=== PATIENT | male | born 1965 | race Caucasian/White ===

== ENCOUNTER → 2017-10-28 16:32 | Outpatient (CLI) | payer SELFPAY ==
[2017-10-28 17:13] LABS: Absolute Lymphocyte Count 1.51 X10^3/ul (0.83-4.51); Absolute Neutrophil Count 2.2 X10^3/uL (2.0-7.7); Basophil# 0.04 X10^3/uL; Basophil% 0.9 % (0-1); Eosinophil# 0.21 X10^3/uL; Eosinophils% 4.9 % (0-5); Hematocrit 48.4 % (40-54); Hemoglobin 16.6 g/dl (13.0-16.5); Lymphocyte # 1.51 X10^3/ul (4.0); Mean Corp Hgb Conc 34.3 g/gl (32-36); Mean Corpuscular Hgb 32.1 pg (27.0-32.0); Mean Corpuscular Volume 93.6 fL (80-94); Mean Platelet Vol. 11.1 fl (6.2-12.0); Monocyte# 0.31 X10^3/uL; Monocyte% 7.2 % (0-10); Neutrophil # 2.24 X10^3/uL (2.7-7.7); Neutrophil % 51.8 % (47-70); Platelet Count 209 K/mm3 (150-450); RBC Distribution Width CV 12.8 % (11.6-14.6); RBC Distribution Width SD 43.1 fl (35.1-43.9); Red Blood Count 5.17 M/mm3 (4.6-6.2); White Blood Count 4.3 K/mm3 (4.4-11.0)
[2017-10-28 17:16] LABS: POSITIVE COUNT NO; POSITIVE DIFFERENTIAL NO; POSITIVE MORPHOLOGY NO
[2017-10-28 17:34] LABS: ALB/GLOB Ratio 1.2 RATIO (0.9-2.4); AST(SGOT) 19 U/L (15-37); Alanine Aminotransfer ALT/SGPT 22 U/L (16-61); Albumin, Serum 4.2 g/dL (3.2-5.0); Alkaline Phosphatase 46 U/L (45-117); Anion Gap 8 (5-15); BUN 11 mg/dL (7-18); BUN/Creat Ratio 10.2 RATIO (10-20); Chloride 104 mmol/L (98-107); Cholesterol 222 mg/dL (200); Creatinine, Serum 1.08 mg/dL (0.70-1.30); EST Glomerular Filtration Rate 76 mL/min (>60); Est Glom Filt Rate - Afr Amer 92 mL/min (>60); Globulin 3.6 g/dL (2.2-4.2); Glucose 88 mg/dL (74-106); High Density Lipoprotein 56 mg/dL; PSA,Total - Annual Screen 1.58 ng/mL (0.00-4.00); Potassium 4.4 mmol/L (3.5-5.1); Protein, Total 7.8 g/dL (6.4-8.2); Sodium Level 138 mmol/L (136-145); Triglycerides 92 mg/dL; Very Low Density Lipoprotein 18 mg/dL (5-40)
== END ==
PROVIDERS: Visit Provider Nurse Practitioner
DX: Z00.00 Encounter for general adult medical examination without abnormal findings (principal); R35.0 Frequency of micturition; R79.89 Other specified abnormal findings of blood chemistry
CPT/HCPCS: 80053; 80061; 84153; 84403; 85025; G0103

== ENCOUNTER → 2018-03-19 13:05 | Outpatient (CLI) | payer SELFPAY ==
[2018-03-07 19:17] VITALS: BMI 20.9
[2018-03-19 13:51] LABS: Absolute Lymphocyte Count 1.39 X10^3/ul (0.83-4.51); Absolute Neutrophil Count 6.3 X10^3/uL (2.0-7.7); Basophil# 0.02 X10^3/uL; Basophil% 0.2 % (0-1); Eosinophil# 0.06 X10^3/uL; Eosinophils% 0.7 % (0-5); Hematocrit 41.6 % (40-54); Hemoglobin 13.9 g/dl (13.0-16.5); Lymphocyte # 1.39 X10^3/ul (4.0); Lymphocyte % 16.4 % (19-41); Mean Corp Hgb Conc 33.4 g/gl (32-36); Mean Corpuscular Hgb 31.5 pg (27.0-32.0); Mean Corpuscular Volume 94.3 fL (80-94); Mean Platelet Vol. 10.1 fl (6.2-12.0); Monocyte# 0.61 X10^3/uL; Monocyte% 7.2 % (0-10); Neutrophil # 6.34 X10^3/uL (2.7-7.7); Neutrophil % 75.1 % (47-70); Platelet Count 195 K/mm3 (150-450); RBC Distribution Width SD 43.7 fl (35.1-43.9); Red Blood Count 4.41 M/mm3 (4.6-6.2); White Blood Count 8.5 K/mm3 (4.4-11.0)
[2018-03-19 14:11] LABS: POSITIVE COUNT NO; POSITIVE DIFFERENTIAL NO; POSITIVE MORPHOLOGY NO
[2018-03-19 14:17] LABS: PSA,Total - Annual Screen 1.87 ng/mL (0.00-4.00)
== END ==
PROVIDERS: Family Provider Nurse Practitioner; PCP Nurse Practitioner; Referring Provider Nurse Practitioner; Visit Provider Nurse Practitioner
DX: E29.1 Testicular hypofunction (principal)
CPT/HCPCS: 36415; 84153; 84403; 85025; G0103

== ENCOUNTER → 2018-06-11 13:42 | Outpatient (CLI) | payer SELFPAY ==
[2018-06-04 15:41] VITALS: BMI 20.9
[2018-06-11 14:33] LABS: Absolute Lymphocyte Count 1.63 X10^3/ul (0.83-4.51); Absolute Neutrophil Count 3.1 X10^3/uL (2.0-7.7); Basophil# 0.01 X10^3/uL; Basophil% 0.2 % (0-1); Eosinophil# 0.05 X10^3/uL; Hematocrit 45.2 % (40-54); Hemoglobin 15.3 g/dl (13.0-16.5); Lymphocyte # 1.63 X10^3/ul (4.0); Lymphocyte % 31.9 % (19-41); Mean Corp Hgb Conc 33.8 g/gl (32-36); Mean Corpuscular Hgb 31.8 pg (27.0-32.0); Mean Platelet Vol. 10.6 fl (6.2-12.0); Monocyte# 0.34 X10^3/uL; Monocyte% 6.7 % (0-10); Neutrophil # 3.08 X10^3/uL (2.7-7.7); Neutrophil % 60.2 % (47-70); Platelet Count 189 K/mm3 (150-450); RBC Distribution Width CV 12.6 % (11.6-14.6); RBC Distribution Width SD 43.2 fl (35.1-43.9); Red Blood Count 4.81 M/mm3 (4.6-6.2); White Blood Count 5.1 K/mm3 (4.4-11.0)
[2018-06-11 14:34] LABS: POSITIVE COUNT NO; POSITIVE DIFFERENTIAL NO; POSITIVE MORPHOLOGY NO
[2018-06-11 15:27] LABS: PSA,Total- Diagnostic 1.92 ng/mL (0.0-4.0)
[2018-06-13 11:24] LABS: Testosterone Free 17.5 pg/mL (7.2-24.0)
== END ==
PROVIDERS: Family Provider Nurse Practitioner; PCP Nurse Practitioner; Referring Provider Nurse Practitioner; Visit Provider Nurse Practitioner
DX: E29.1 Testicular hypofunction (principal)
CPT/HCPCS: 36415; 84153; 84402; 85025

== ENCOUNTER → 2018-09-10 09:59 | Outpatient (CLI) | payer SELFPAY ==
[2018-09-03 15:29] VITALS: BMI 20.9
[2018-09-10 10:57] LABS: Absolute Lymphocyte Count 1.55 X10^3/ul (0.83-4.51); Absolute Neutrophil Count 2.4 X10^3/uL (2.0-7.7); Basophil# 0.02 X10^3/uL; Basophil% 0.4 % (0-1); Eosinophil# 0.15 X10^3/uL; Eosinophils% 3.4 % (0-5); Hematocrit 44.7 % (40-54); Lymphocyte # 1.55 X10^3/ul (4.0); Lymphocyte % 34.8 % (19-41); Mean Corp Hgb Conc 33.6 g/gl (32-36); Mean Corpuscular Hgb 30.7 pg (27.0-32.0); Mean Corpuscular Volume 91.4 fL (80-94); Mean Platelet Vol. 10.6 fl (6.2-12.0); Monocyte% 6.7 % (0-10); Neutrophil # 2.42 X10^3/uL (2.7-7.7); Neutrophil % 54.5 % (47-70); Platelet Count 214 K/mm3 (150-450); RBC Distribution Width CV 13.4 % (11.6-14.6); RBC Distribution Width SD 44.4 fl (35.1-43.9); Red Blood Count 4.89 M/mm3 (4.6-6.2); White Blood Count 4.5 K/mm3 (4.4-11.0)
[2018-09-10 11:00] LABS: POSITIVE COUNT NO; POSITIVE DIFFERENTIAL NO; POSITIVE MORPHOLOGY NO
[2018-09-10 11:20] LABS: PSA,Total- Diagnostic 2.02 ng/mL (0.0-4.0)
[2018-09-12 13:06] LABS: Testosterone Free 22.2 pg/mL (7.2-24.0)
== END ==
PROVIDERS: Family Provider Nurse Practitioner; PCP Nurse Practitioner; Referring Provider Nurse Practitioner; Visit Provider Nurse Practitioner
DX: E29.1 Testicular hypofunction (principal)
CPT/HCPCS: 36415; 84153; 84402; 85025

== ENCOUNTER → 2019-09-23 | Outpatient (CLI) | payer OTHER, SELFPAY ==
[2019-09-23 15:38] VITALS: BMI 21.2
[2019-09-25 19:58] LABS: PSA, Free 0.49 ng/mL; PSA, Total Ultrasensitive 1.4 ng/mL (0.0-4.0)
== END | disposition home or self-care (01) ==
PROVIDERS: PCP Nurse Practitioner; Referring Provider Nurse Practitioner; Visit Provider Nurse Practitioner
DX: N40.0 Benign prostatic hyperplasia without lower urinary tract symptoms (principal); R30.0 Dysuria
CPT/HCPCS: 84153; 84154

== ENCOUNTER → 2021-12-17 | Outpatient (CLI) | payer OTHER, SELFPAY ==
[2021-12-17 21:10] LABS: Lyme Ab Screen Interpretation REF LAB
[2021-12-17 21:50] LABS: Absolute Lymphocyte Count 1.98 X10^3/uL (0.83-4.51); Absolute Neutrophil Count 5.5 X10^3/uL (2.0-7.7); Basophil# 0.04 X10^3/uL; Basophil% 0.5 % (0-1); Eosinophil# 0.14 X10^3/uL; Eosinophils% 1.7 % (0-5); Hematocrit 44.8 % (40-54); Hemoglobin 15.1 g/dL (13.0-16.5); Lymphocyte # 1.98 X10^3/ul (0.83-4.51); Lymphocyte % 23.8 % (19-41); Mean Corp Hgb Conc 33.7 g/dL (32-36); Mean Corpuscular Hgb 31.3 pg (27.0-32.0); Mean Corpuscular Volume 92.9 fL (80-94); Mean Platelet Vol. 10.5 fl (6.2-12.0); Monocyte# 0.59 X10^3/uL; Monocyte% 7.1 % (0-10); NRBC Flagged by Analyzer 0 % (0-5); Neutrophil # 5.53 X10^3/uL (2.7-7.7); Neutrophil % 66.4 % (47-70); Platelet Count 215 K/mm3 (150-450); RBC Distribution Width CV 12.3 % (11.6-14.6); RBC Distribution Width SD 42.2 fl (35.1-43.9); Red Blood Count 4.82 M/mm3 (4.6-6.2); White Blood Count 8.3 K/mm3 (4.4-11.0)
[2021-12-17 22:56] LABS: AST(SGOT) 15 U/L (15-37); Alanine Aminotransfer ALT/SGPT 21 U/L (16-61); Albumin, Serum 3.8 g/dL (3.2-5.0); Alkaline Phosphatase 42 U/L (45-117); Anion Gap 6 (5-15); BUN 16 mg/dL (7-18); BUN/Creat Ratio 17.6 RATIO (10-20); Calcium,Total 9.1 mg/dL (8.5-10.1); Chloride 108 mmol/L (98-107); Creatinine, Serum 0.91 mg/dL (0.70-1.30); EST Glomerular Filtration Rate 91 mL/min (>60); Est Glom Filt Rate - Afr Amer 111 mL/min (>60); Globulin 3.7 g/dL (2.2-4.2); Glucose 78 mg/dL (74-106); Potassium 3.6 mmol/L (3.5-5.1); Prealbumin 33.1 mg/dL (20.0-40.0); Protein, Total 7.5 g/dL (6.4-8.2); Rheumatoid Factor < 10.0 IU/mL (<15); Sodium Level 143 mmol/L (136-145); Thyroid Stim Hormone (TSH) 1.44 uIU/mL (0.358-3.74)
[2021-12-19 11:07] LABS: Lyme Scn Total Ab w/Rflx Negative (Negative)
[2021-12-20 15:07] LABS: Anti-Centromere B Ab <0.2 AI (0.0-0.9); Anti-Chromatin <0.2 AI (0.0-0.9); Anti-Jo <0.2 AI (0.0-0.9); Anti-Scleroderma-70 AB <0.2 AI (0.0-0.9); RNP Ab <0.2 AI (0.0-0.9); SJOGREN'S Anti-SS-A test < 0.2 AI (0.0-0.9); SJOGREN'S Anti-SS-B test < 0.2 AI (0.0-0.9); Smith Ab <0.2 AI (0.0-0.9)
[2021-12-20 15:57] LABS: Anti-dsDNA Ab <1 IU/mL (0-9)
== END | disposition home or self-care (01) ==
PROVIDERS: PCP Nurse Practitioner; Referring Provider Nurse Practitioner; Visit Provider Nurse Practitioner
DX: R63.4 Abnormal weight loss (principal); M54.50 Low back pain, unspecified; G89.29 Other chronic pain
CPT/HCPCS: 80053; 84134; 84443; 85025; 86225; 86235; 86431; 86618

== ENCOUNTER → 2021-12-20 | Outpatient (CLI) | payer SELFPAY ==
--- NOTE | 2021-12-20 09:35 | RAD_ITS ---
STUDY: X-RAY - LUMBAR SPINE REASON FOR EXAM: Male, 56 years old. Severe pain lower lumbar TECHNIQUE: 3 view(s) of the lumbar spine were obtained. COMPARISON: None FINDINGS: Normal lumbar lordosis. There is no substantial scoliosis. There is a normal alignment of the vertebrae. There is multilevel endplate spondylosis of the lumbar vertebrae. There is mild multi-level degenerative disc disease with mild multi-level disc space narrowing. The soft tissue structures are unremarkable. RAD/Lumbar Spine 2 or 3 Views IMPRESSION: Multilevel degenerative changes. Electronically Signed: Darcy Van MD at 9:54 EDT ,
== END | disposition home or self-care (01) ==
PROVIDERS: PCP Nurse Practitioner; Referring Provider Nurse Practitioner; Visit Provider Nurse Practitioner
DX: M54.50 Low back pain, unspecified (principal); G89.29 Other chronic pain; R63.4 Abnormal weight loss
CPT/HCPCS: 72100

== ENCOUNTER → 2023-04-07 | Outpatient (CLI) | payer OTHER, SELFPAY ==
[2023-04-10 12:08] LABS: Anti-Centromere B Ab <0.2 AI (0.0-0.9); Anti-Chromatin <0.2 AI (0.0-0.9); Anti-Jo <0.2 AI (0.0-0.9); Anti-Scleroderma-70 AB <0.2 AI (0.0-0.9); Anti-dsDNA Ab <1 IU/mL (0-9); RNP Ab <0.2 AI (0.0-0.9); SJOGREN'S Anti-SS-A test < 0.2 AI (0.0-0.9); SJOGREN'S Anti-SS-B test < 0.2 AI (0.0-0.9); Smith Ab <0.2 AI (0.0-0.9)
[2023-04-10 13:07] LABS: CCP IgG Antibodies 8 units (0-19)
== END | disposition home or self-care (01) ==
PROVIDERS: PCP Nurse Practitioner; Referring Provider Nurse Practitioner; Visit Provider Nurse Practitioner
DX: M06.9 Rheumatoid arthritis, unspecified (principal)
CPT/HCPCS: 86200; 86225; 86235

== ENCOUNTER → 2024-01-30 | Outpatient (CLI) | payer SELFPAY ==
[2024-01-30 06:55] LABS: CREATININE FINGERSTICK < 1.0 mg/dL (0.70-1.30); EGFR FINGERSTICK > 60.0000 mL/min (>60)
== END | disposition home or self-care (01) ==
LOC: CT 06:25
PROVIDERS: PCP Nurse Practitioner; Referring Provider Otolaryngology; Visit Provider Otolaryngology
DX: R22.0 Localized swelling, mass and lump, head (principal)
CPT/HCPCS: 70491; Q9967

== ENCOUNTER → 2024-08-20 | Outpatient (CLI) | payer SELFPAY ==
--- NOTE | 2024-08-20 07:39 | HP.PCM.SX_ITS ---
HPI - General HPI Narrative Tuan Shields is a delightful 58-year-old male who is reportedly otherwise healthy who presents today for a right cheek mass as a referral from [facility] dermatology. They are concerned that it is a hemangioma lipoma as it is causing him significant pain and discomfort. Patient reports that the mass has been there for about 9 months, and has been growing. He went to a local ENT Dr. Sebastian in January 2024, who diagnosed him with a likely lipoma based on a CT scan and recommended observation. The mass/lipoma on the CT scan (I reviewed) is consistent with the chief complaint at today's visit, and a subcutaneous and overlying the right masseter. Patient reports that ever since his evaluation in January with ENT, the area of concern has become more painful and sometimes wakes him up at night. He has not had any facial palsy or trouble moving his face. He has no numbness on the side of his face. There is no drainage. He has not had any intraoral issues like tooth infections. He has never hurt the side of his face. He presented to the furnace combination analyst for excision and they referred him to me. Patient is not a smoker. No personal or family history of bleeding or clotting problems Current Encounter (DATE OF SURGERY H&P UPDATE): I saw and examined the patient this morning in pre-operative holding. Patient has new onset dizziness and right sided neck and ear pain of approximately 3 to 4 weeks duration. He was treated with antibiotics by his primary care physician without much improvement. [facility] Medical History (Updated 08/16/24 @ 14:59 by Kim Lowe) Loss of hearing Wears contact lenses Prostate disease Arthritis Back pain Syncope Non-smoker Leg cramps Home Medications ?Medication ?Instructions ?Recorded ?Last Taken ?Type multivitamin (Daily Multi-Vitamin 1 tab PO DAILY 08/16 Unknown History tablet) oxycodone 5 mg tablet 5 mg PO BID PRN pain 5 days #10 08/20/24 Unknown Rx tabs Allergy/AdvReac Type Severity Reaction Status Date / Time Seasonal Allergies: Uncoded Allergy Severe Other Verified 08/20/24 07:42 Surgical History (Updated 08/16/24 @ 14:59 by Kim Lowe) History of axillary surgery Hx of tonsillectomy Social History Smoking Status: Never smoker alcohol intake: never Physical Exam Narrative No cervical lymphadenopathy on my exam Pupils equal and reactive There is a 2 x 2 cm painful mass just anterior to the parotid on the right side of the face that is mobile and subcutaneous. It is overlying the masseter and I cannot palpate the mass intraorally. He does not have any tenderness over the parotid today but there is some tenderness over the right side of the neck around the ear. Cranial nerve exam: Cranial nerve II: visual acuity intact Cranial nerves III, IV and : extraocular movements intact, no diplopia with extraocular movements. Cranial nerve V: sensation to light touch intact in all 3 distributions of cranial nerve V. Cranial nerve VII: Patient is able to raise eyebrows, closes eyes, smile, purse lips, and move his lower lip to show his lower teeth symmetrically on both sides. Assessment & Plan Assessment/Plan (1) Lipoma: QUALIFIERS: Lipoma location: face Qualified Code(s): D17.0 - Benign lipomatous neoplasm of skin and subcutaneous tissue of head, face and neck PLAN: Agree with [facility] dermatology, hemangiolipoma, a painful and vascular variant of a lipoma that is commonly in men, is a possible diagnosis. We will not know the diagnosis until it is excised and sent to pathology. I talked to the patient about the risks, benefits, and alternatives to surgery. I talked to him about direct excision over the lesion with a scar on the side of his face with unpredictable scarring, and he was in agreement that he wanted to proceed regardless of the scar. I talked to the patient extensively about the risks of facial nerve palsy as this is a location where the facial nerve comes out of the parotid. He understands that this is a risk. The risk is neuropraxia or, even worse, transection of the nerve with need for repeat operations and reconstruction. There is also risks of damage to other surrounding structures including the parotid duct. We discussed these risks and he was in agreement to proceed with the surgery as the mass is concerning him and causing him significant sharp severe pain. We also talked about the risks of damage to an irritation of the parotid and sialocele. I talked to the patient extensively about the general risks of surgery, including bleeding, infection, damage to surrounding structures, poor scaring, surgical site dehiscence and wound formation, need for wound care, need for repeat operations, failure to obtain the desired result, DVT/PE, and the risks of anesthesia including , including stroke (from low blood pressure/ischemia or clot). The benefits and alternatives of this surgery were also discussed. All of their questions were answered, and they agreed to proceed with surgery. INTERVAL H&P PLAN, DATE OF SURGERY: Unclear etiology of the new onset dizziness and ear pain, as well as right cheek and neck pain. I think in the setting of all of the symptoms in the mass being on the right cheek, it would be a bad idea to do surgery today and he needs a workup for the dizziness and right ear pain/neck pain. I am referring him to ENT at [facility] for evaluation of the mass and for evaluation of the ear pain and dizziness/pain. Patient and his agreeable to the plan. Canceling surgery today
[2024-08-20 07:43] VITALS: BP 112/72; PULSE 71; RESP 16; TEMP 36.3; O2SAT 100; BMI 19.1
[2024-08-20] MEDS: Lactated Ringers 1,000 ML 15 ML IV (07:46)
--- NOTE | 2024-08-20 07:58 | PRE.ANES_ITS ---
ASA Classification* ASA Classification ASA Classification: 2 Assessment & Plan Anesthesia* Anesthesia Assessment Anesthesia Assessment: Discussed sedation and/or anesthesia options, risks, benefits, and alternatives with patient/parents/legal guardian/POA. Questions invited. The patient/parents/legal guardian/POA seems to understand and agrees to proceed with anesthesia plan. Reviewed the physical assessment, medical history, allergy history and patient home medications list prior to surgery/procedure/anesthetic and documented any changes. Performed airway and anesthesia risk assessments. Anesthesia Type Anesthesia Type: General (LMA) History Source History Obtained from:: Patient and Chart Anesthesia Focused Assessment* Temperature: 97.3 F Pulse Rate: 71 Blood Pressure: 112/72 Respiratory Rate: 16 Pulse Ox: 100 Oxygen Delivery Method: Room Air Airway Assessment Mouth opens: >3 cm Mallampati Score: II Teeth Condition: Intact Neck Range of motion (ROM): Full ROM Labs Anesthesia Preop lab: CBC WBC 8.3 K/mm3 (4.4-11.0) 12/17/21 16:12/17/21 RBC 4.82 M/mm3 (4.6-6.2) 12/17/21 16:22 12/17/21 Hgb 15.1 g/dL (13.0-16.5) 12/17/21 16:22 12/17/21 Hct 44.8 % (40-54) 12/17/21 16:22 12/17/21 Plt Count 215 K/mm3 (150-450) 12/17/21 16:22 12/17/21 CHEMISTRY Potassium 3.6 mmol/L (3.5-5.1) 12/17/21 16:22 12/17/21 Sodium 143 mmol/L (136-145) 12/17/21 16:22 12/17/21 BUN 16 mg/dL (7-18) 12/17/21 16:22 12/17/21 Creatinine 0.91 mg/dL (0.70-1.30) 12/17/21 16:22 12/17/21 Glucose 78 mg/dL (74-106) 12/17/21 16:22 12/17/21 TSH 1.44 uIU/mL (0.358-3.74) 12/17/21 16:22 COAG Pre-Assessment Diagnosis/Proposed Procedure Planned Operative Procedure(s): EXCISION RIGHT CHEEK MASS Anesthesia History 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 When Was Last Pacemaker Check QUESTION #4 FULL TEXT: You/Your Family Experience fever (hyperthermia) with Anesthesia Last Oral Intake Last Oral intake: Last Oral Intake NPO since 06:00 08/20/24 07:43 Meds taken in AM with sips of No 08/20/24 07:43 water? Meds patient instructed to take am of surgery PONV PONV - retail route supervisor: PONV - retail route supervisor Female No 08/16/24 14:52 HX of Motion Sickness No 08/16/24 14:52 HX of N/V After Surgery No 08/16/24 14:52 Non-Smoker Yes 08/16/24 14:52 Duration of Surgery greater Yes 08/16/24 14:52 than 60 minutes Number of Risk Factors 2 08/16/24 14:52 PONV Score Moderate Risk 08/16/24 14:52 Height & Weight Height & Weight: Anesthesia: Height & Weight Height 5 ft 11 in 08/20/24 07:43 Weight: 62 kg 08/20/24 07:43 Body Mass Index (BMI) 19.1 08/20/24 07:43 Respiratory Assessment Respiratory Assessment - retail route supervisor: Respiratory Tract Infection Hx - retail route supervisor Hx Respiratory Tract Infection No 08/16/24 14:52 STOP Sleep Apnea STOP Sleep Apnea - retail route supervisor: STOP Sleep Apnea - retail route supervisor Hx Hypertension No 08/16/24 14:52 Hx Sleep Apnea No 08/16/24 14:52 CPAP BIPAP Do you snore loudly (louder No 08/16/24 14:52 than talking or can be heard Do you often feel tired/ No 08/16/24 14:52 fatigued/ sleepy during daytime? Has anyone observed you stop No 08/16/24 14:52 breathing during sleep? STOP Results Negative 08/16/24 14:52 QUESTION #5 FULL TEXT : Do you snore loudly (louder than talking or can be heard through closed doors)? Tobacco Use History Tobacco Use History - retail route supervisor: Tobacco Use History - retail route supervisor Tobacco Use Smoking Status Never smoker 08/16/24 14:52 Hx Tobacco Use No 08/16/24 14:52 Years Smoking Packs Smoked per Day Smoking Cessation Date was within the last 15 years Hx Smoking Cessation Date Hx Smoking Cessation Counseling Hematologic Medial History Hematologic Hx - retail route supervisor: Hematologic Medical Hx - museum technician Hx of Blood Transfusion No 08/16/24 14:52 Hx of Transfusion in last 3 No 08/16/24 14:52 Months Date of Last Transfusion (if within last 3 months) Ever experience any problems No 08/16/24 14:52 with transfusion(s)? Specify any problems Hx of Preganancy in last 3 N/A 08/16/24 14:52 Months Nurse Filling Out Transfusion DSCHRIBER 08/16/24 14:52 & Questions: Date: 08/16/24 08/16/24 14:52 Time: 14:53 08/16/24 14:52 Patient unable to answer at this time (ie. confused, unrespo /Reproduction History /Reproductive History - retail route supervisor: /Reproductive Hx- retail route supervisor Hx Now No 08/16/24 14:52 Gestational Age (in weeks): EDC: Hx Hx Para Hx Section SAB No 08/16/24 14:52 Active Medications Active Medications: Current Medications Generic Name Dose Route Start Last Admin Trade Name Freq PRN Reason Stop Dose Admin Cefazolin Sodium 2 gm/ Sodium 110 mls @ 150 mls/hr 08/20/24 09:00 Chloride IV 08/20/24 09:43 INTRAOP ONE Lactated Ringer's 1,000 mls @ 15 mls/hr 08/20/24 07:30 08/20/24 07:46 IV 15 mls/hr .Q48H GRACE Administration PFSH Medical History (Updated 08/16/24 @ 14:59 by Kim Lowe) Loss of hearing Wears contact lenses Prostate disease Arthritis Back pain Syncope Non-smoker Leg cramps Home Medications ?Medication ?Instructions ?Recorded ?Last Taken ?Type multivitamin (Daily Multi-Vitamin 1 tab PO DAILY 08/16 Unknown History tablet) oxycodone 5 mg tablet 5 mg PO BID PRN pain 5 days #10 08/20/24 Unknown Rx tabs Allergy/AdvReac Type Severity Reaction Status Date / Time Seasonal Allergies: Uncoded Allergy Severe Other Verified 08/20/24 07:42 Surgical History (Updated 08/16/24 @ 14:59 by Kim Lowe) History of axillary surgery Hx of tonsillectomy Social History Smoking Status: Never smoker alcohol intake: never Review of Systems (Anesthesia) ROS Narrative System reviewed and no additional complaints, except as documented. Physical Exam Const alert, oriented x3 and average body habitus Resp normal respiratory effort, normal air movement and clear to auscultation bilaterally Cardio regular rate, regular rhythm, no murmurs and diaphoretic
[2024-08-20 08:00] VITALS: BP 112/72; PULSE 71; RESP 16; TEMP 36.3; O2SAT 100
--- NOTE | 2024-08-20 09:43 | NURSING ---
PT CANCELED BY SURGEON FOR EAR ACHE, PT INFORMED BY SURGEON THAT OFFICE WOULD FACILITATE ENT CONTACTING HIM AND THEN OFFICE WOULD RESCHEDULE PROCEDURE.
== END | disposition home or self-care (01) ==
LOC: AC 07:37 → SDC 04-15 11:58
PROVIDERS: PCP Nurse Practitioner; Referring Provider Surgery Plastic and Reconstructive Surgery; Visit Provider Surgery Plastic and Reconstructive Surgery
DX: Z53.8 Procedure and treatment not carried out for other reasons (principal)
CPT/HCPCS: J2405

== ENCOUNTER → 2024-09-23 | Outpatient (CLI) | payer SELFPAY ==
--- OUTSIDE RECORDS SUMMARY | 2024-09-24 03:24 | XMS RPT_ITS | CCD ---
Author Organization [facility] Care Team Providers Care Bottomer Operator Name Role Phone Maikel LICENSED PROFESSIONAL COUNSELOR-C, Leonora Primary Care Provider [phone] Maikel LICENSED PROFESSIONAL COUNSELOR-C, Leonora Attending Provider Maikel BATES-C, Leonora Referring Provider Dr. Isra Lepe MD Attending Provider Fili Sebastian Attending Fili Gomez Referring Brett Ko LICENSED PROFESSIONAL COUNSELOR, Leonora Primary Care Unavailable Isra Lepe Attending Unavailable Emily Marte Referring Unavailable Maikel LICENSED PROFESSIONAL COUNSELOR, Leonora Primary Care Unavailable Isra Lepe Referring Unavailable Maikel LICENSED PROFESSIONAL COUNSELOR, Leonora Primary Care Unavailable Isra Lepe Consulting Unavailable Isra Lepe Attending Unavailable Unavailable Primary Care Provider Unavailbharat e Allergies Allergy Classification Reported Allergen(s) Allergy Type Date of Onset Reaction(s) Facility (3 sources) Seasonal Allergies: Uncoded; Translations: [Seasonal Allergies: Uncoded] Allergy to substance 01-21-2022 Other [facility] Comment on above: EYES SWELL Medications Completed/Discontinued Medications Medication Drug Class(es) Dates Sig (Normalized) Sig (Original) amoxicillin 875 mg oral tablet (4 sources) Penicillin-class Antibacterial Start: 3 End: 4 take 1 tablet by mouth twice daily Amoxicillin 875 mg tablet Discontinued 875 mg PO TWICE A DAY October 11, 2022 12:00am April 05, 2023 8:35pm amoxicillin 875 mg / clavulanate 125 mg oral tablet (1 source) Penicillin-class Antibacterial Start: 4 End: 5 Amoxicillin-Pot Clavulanate 875-125 mg tablet Discontinued 1 {tbl} PO TWICE A DAY November 30, 2023 12:00am April 09, 2024 6:53pm azithromycin 250 mg oral tablet (1 source) Macrolide Antimicrobial Start: 5 End: 5 take 2 tablets by mouth once daily, then take 1 tablet by mouth once daily at mealtime Azithromycin 250 mg tablet Discontinued 250 mg PO daily 6 5 April 09, 2024 1:00am April 13, 2024 1:00am April 14, 2024 1:11am 2 po qd for 1 day then 1 po qd for 4 days with food or after eating cyclobenzaprine hydrochloride 5 mg oral tablet (2 sources) Muscle Relaxant Start: 3 End: 5 take 1 tablet by mouth three times daily as needed for muscle spasms Cyclobenzaprine 5 mg tablet Discontinued 5 mg PO THREE TIMES A DAY as needed for muscle spasm 60 October 11, 2022 12:00am April 09, 2024 6:54pm finasteride 5 mg oral tablet (10 sources) 5-alpha Reductase Inhibitor Start: 1 End: 4 take 1 tablet by mouth once daily Finasteride 5 mg tablet Discontinued 5 mg PO DAILY 90 July 29, 2022 8:17pm November 30, 2023 6:25pm fluconazole 150 mg oral tablet (4 sources) Azole Antifungal Start: 8 End: 8 Fluconazole 150 mg tablet Discontinued 150 mg PO Every 3 Days 2 0 January 10, 2018 1:00am January 10, 2018 1:00am January 11, 2018 1:09am july repeat second dose 72 hrs after first dose if symptoms persist hydroxychloroquine sulfate 200 mg oral tablet (3 sources) Antimalarial, Antirheumatic Agent Start: 4 End: 4 take 1 tablet by mouth twice daily Hydroxychloroquine 200 mg tablet Discontinued 200 mg PO TWICE A DAY 60 May 02, 2023 1:30pm November 30, 2023 6:25pm loratadine 10 mg oral tablet (4 sources) Start: 8 End: 1 Loratadine (Claritin) 10 mg tablet Discontinued 10 mg PO .prn October 27, 2017 12:00am August 11, 2020 6:20pm meloxicam 15 mg oral tablet (6 sources) Nonsteroidal Anti-inflammatory Drug Start: 2 End: 5 take 1 tablet by mouth once daily Meloxicam 15 mg tablet Discontinued 15 mg PO daily December 06, 2022 2:45pm April 09, 2024 6:54pm start after finishing steroids 24 hr oxybutynin chloride 10 mg extended release oral tablet (8 sources) Cholinergic Muscarinic Antagonist Start: 2 End: 2 take 1 tablet by mouth once daily Oxybutynin Chloride 10 mg tablet extended release 24hr Discontinued 10 mg PO DAILY June 29, 2021 8:43pm December 17, 2021 5:17pm predniSONE 20 mg oral tablet (19 sources) Start: 4 End: 5 take 2 tablets by mouth once daily Prednisone 20 mg tablet Discontinued 40 mg PO DAILY April 09, 2024 1:00am July 18, 2024 2:00pm Start: 05-02-2023 End: 05-06-2023 take 2 tablets by mouth twice daily as needed, then take 1 tablet by mouth twice daily as needed, then take 0.5 tablet by mouth once daily as needed Prednisone 10 mg tablet Discontinued 20 mg PO TWICE A DAY as needed for poison azucena 30 4 May 02, 2023 1:00am May 05, 2023 1:00am May 06, 2023 1:13am 2 po bid 4D,1 po bid for 4 D, 1 po qd for 4D 1/2 po qd for2 D Start: 04-07-2023 End: 11-30-2023 take 2 tablets by mouth once daily Prednisone 20 mg tablet Discontinued 40 mg PO DAILY April 07, 2023 5:49pm November 30, 2023 6:26pm Start: 04-07-2023 take 40 mg by mouth once daily Prednisone Active 40 MG PO DAILY April 07, 2023 4:49pm Start: 12-21-2021 End: 12-25-2021 take 2 tablets by mouth twice daily as needed, then take 1 tablet by mouth twice daily as needed, then take 0.5 tablet by mouth once daily as needed Prednisone 10 mg tablet Discontinued 20 mg PO TWICE A DAY as needed for spondylosis 30 4 December 21, 2021 12:00am December 24, 2021 12:00am December 25, 2021 12:09am 2 po bid 4D,1 po bid for 4 D, 1 po qd for 4D 1/2 po qd for2 D Start: 12-21-2021 End: 12-25-2021 Prednisone Discontinued 20 M G PO TWICE A DAY 03 07December 20, 2021 11:00pm December 24, 2021 11:09pm 2 po bid 4D,1 po bid for 4 D, 1 po qd for 4D 1/2 po qd for2 D Start: 12-17-2021 End: 04-05-2023 take 2 tablets by mouth once daily Prednisone 20 mg tablet Discontinued 40 mg PO DAILY January 17, 2023 8:50pm April 05, 2023 8:35pm Start: 12-17-2021 End: 04-05-2023 take 40 mg by mouth once daily Prednisone Discontinued 40 MG PO DAILY January 17, 2023 7:50pm April 05, 2023 7:35pm sildenafil 100 mg oral tablet (17 sources) Phosphodiesterase 5 Inhibitor Start: 08-11-2020 End: 04-09-2024 Sildenafil 100 mg tablet Discontinued 100 mg PO DAILY as needed for sexual activity January 18, 2024 9:15pm April 09, 2024 6:54pm administer 30 minutes to 4 hours before activity Start: 10-27-2017 End: 08-11-2020 Sildenafil (Viagra) 25 mg ta blet Discontinued 25 mg PO .prn October 27, 2017 12:00am August 11, 2020 6:31pm sulfamethoxazole 800 mg / trimethoprim 160 mg oral tablet (4 sources) Dihydrofolate Reductase Inhibitor Antibacterial, Sulfonamide Antimicrobial Start: 12-26-2017 End: 01-05-2018 Sulfamethoxazole-Trimethopri m 800-160 mg tablet Discontinued 1 {tbl} PO TWICE A DAY 23 12December 26, 2017 12:00am January 04, 2018 12:00am January 05, 2018 12:10am Start: 12-26-2017 End: 01-05-2018 take 1 tablet by mouth twice daily Sulfamethoxazole-Trimethoprim Discontinu ed 1 TABLET PO TWICE A DAY 23 12December 25, 2017 11:00pm January 04, 2018 11:10pm tamsulosin hydrochloride 0.4 mg oral capsule (16 sources) alpha-Adrenergic Delta Start: 07-29-2022 End: 11-30-2023 take 1 capsule by mouth once daily Tamsulosin 0.4 mg capsule Discontinued 0.4 mg PO DAILY April 07, 2023 8:11pm November 30, 2023 6:26pm Start: 01-10-2018 End: 08-11-2020 take 1 capsule by mouth once daily Tamsulosin 0.4 mg capsule Discontinued 0.4 mg PO DAILY 90 September 23, 2019 3:40pm August 11, 2020 6:32pm valACYclovir 1000 mg oral tablet (1 source) Herpesvirus Nucleoside Analog DNA Polymerase Inhibitor, Herpes Simplex Virus Nucleoside Analog DNA Polymerase Inhibitor, Herpes Zoster Virus Nucleoside Analog DNA Polymerase Inhibitor Start: 11-30-2023 End: 12-07-2023 Valacyclovir 1 gram tablet Discontinued 1000 mg PO THREE TIMES A DAY 23 09November 30, 2023 12:00am December 06, 2023 12:00am December 07, 2023 12:07am Problems Active Problems Problem Classification Problem Date Documented Da te Episodic/Chronic Chronic obstructive pulmonary disease and bronchiectasis (1 source) Bronchitis; Translations: [Bronchitis, not specified as acute or chronic] 04-09-2024 Episodic Diseases of mouth; excluding dental (1 source) Painful mouth; Translations: [Other lesions of oral mucosa] 01-15-2024 Episodic Genitourinary symptoms and ill-defined conditions (12 sources) Urinary frequency; Translations: [Dysuria] 10-04-2021 Episodic Hyperplasia of prostate (4 sources) Benign prostatic hyperplasia; Translations: [Benign prostatic hyperplasia without lower urinary tract symptoms] 02-01-2018 Chronic Mycoses (4 sources) Mycosis; Translations: [Candidiasis, unspecified] 01-11-2018 Episodic Osteoarthritis (2 sources) Osteoarthritis; Translations: [Unspecified osteoarthritis, unspecified site] 04-07-2023 Chronic Other and unspecified benign neoplasm (1 source) Benign lipomatous neoplasm of skin and subcutaneous tissue of head, face and neck; Translations: [Benign lipomatous neoplasm of skin and subcutaneous tissue of head, face and neck] Onset: 08-20-2024 Episodic Other connective tissue disease (2 sources) Tendonitis of right shoulder; Translations: [Other enthesopathies, not elsewhere classified] 10-11-2022 Episodic Other endocrine disorders (4 sources) Hypotestosteronism; Translations: [Endocrine disorder, unspecified] 12-02-2017 Episodic Other male genital disorders (4 sources) Pain of left testicle; Translations: [Left testicular pain] 02-01-2018 Episodic Other non-traumatic joint disorders (2 sources) Multiple joint pain; Translations: [Pain in unspecified joint] 04-07-2023 Episodic Other non-traumatic joint disorders (2 sources) Pain in right shoulder; Translations: [Right shoulder pain] 10-11-2022 Episodic Other nutritional; endocrine; and metabolic disorders (4 sources) Abnormal weight loss; Translations: [Abnormal weight loss] 12-17-2021 Episodic Other skin disorders (1 source) Localized swelling, mass and lump, head; Translations: [Localized swelling, mass and lump, head] Onset: 08-20-2024 Episodic Other upper respiratory infections (3 sources) Pharyngitis; Translations: [Acute pharyngitis, unspecified] 10-11-2022 Episodic Otitis media and related conditions (2 sources) Acute bilateral otitis media ; Translations: [Otitis media, unspecified, bilateral] 10-11-2022 Episodic Skin and subcutaneous tissue infections (1 source) Abscess; Translations: [Cutaneous abscess, unspecified] 01-15-2024 Episodic Spondylosis; intervertebral disc disorders; other back problems (4 sources) Chronic low back pain; Translations: [Chronic low back pain] 12-17-2021 Episodic Sprains and strains (4 sources) Muscle strain; Translations: [Strain of muscle, fascia and tendon of pelvis, initial encounter] 02-01-2018 Episodic Viral infection (1 source) Herpes zoster; Translations: [Zoster without complications] 12-01-2023 Episodic Past or Other Problems Problem Classification Problem Date Documented Da te Episodic/Chronic Unclassified (4 sources) axilla lymph node 10-04-2021 Unclassified (4 sources) hpertriglyceridemia 10-04-2021 Results Test Name Value Interpretation Reference Range Facility H AND P Exam - Surgicalon H&P Exam - Surgical [facility] Medical Records Department [address] [place] [address] H P Exam - Surgical 08/20/24 0739 MR#: [id number] Acct: [id number] Name: CHAPIN VELEZ Jr. Rep #: [id number] : 1965 58 From: Isra Lepe MD PCP: Leonora Ko NP-C Status:REG [facility] Location: [place] [address] HPI - General HPI Narrative Chapin Velez is a delightful 58-year-old male who is reportedly otherwise healthy who presents today for a right cheek mass as a referral from [facility] dermatology. They are concerned that it is a hemangioma lipoma as it is causing him significant pain and discomfort. Patient reports that the mass has been there for about 9 months, and has been growing. He went to a local ENT Dr. Sebastian in January 2024, who diagnosed him with a likely lipoma based on a CT scan and recommended observation. The mass/lipoma on the CT scan (I reviewed) is consistent with the chief complaint at today's visit, and a subcutaneous and overlying the right masseter. Patient reports that ever since his evaluation in January with ENT, the area of concern has become more painful and sometimes wakes him up at night. He has not had any facial palsy or trouble moving his face. He has no numbness on the side of his face. There is no drainage. He has not had any intraoral issues like tooth infections. He has never hurt the side of his face. He presented to the colloid mill operator for excision and they referred him to me. Patient is not a smoker. No personal or family history of bleeding or clotting problems Current Encounter (DATE OF SURGERY H P UPDATE): I saw and examined the patient this morning in pre- operative holding. Patient has new onset dizziness and right sided neck and ear pain of approximately 3 to 4 weeks duration. He was treated with antibiotics by his primary care physician without much improvement. [facility] Medical History (Updated 08/16/24 @ 14:59 by Kim Lowe) Loss of hearing Wears contact lenses Prostate disease Arthritis Back pain Syncope Non-smoker Leg cramps Home Medications ???Medication ???Instructions ???Recorded ???Last Taken ???Type multivitamin (Daily Multi-Vitamin 1 tab PO DAILY 08/16/24 Unknown H istory tablet) oxycodone 5 mg tablet 5 mg PO BID PRN pain 5 days #10 Unknown Rx tabs Allergy/AdvReac Type Severity Reaction Status Date / Time Seasonal Allergies: Uncoded Allergy Severe Other Verified 08/20/24 07:42 Surgical History (Updated 08/16/24 @ 14:59 by Kim Lowe) History of axillary surgery Hx of tonsillectomy Social History Smoking Status: Never smoker alcohol intake: never Physical Exam Narrative No cervical lymphadenopathy on my exam Pupils equal and reactive There is a 2 x 2 cm painful mass just anterior to the parotid on the right side of the face that is mobile and subcutaneous. It is overlying the masseter and I cannot palpate the mass intraorally. He does not have any tenderness over the parotid today but there is some tenderness over the right side of the neck around the ear. Cranial nerve exam: Cranial nerve II: visual acuity intact Cranial nerves III, IV and : extraocular movements intact, no diplopia with extraocular movements. Cranial nerve V: sensation to light touch intact in all 3 distributions of cranial nerve V. Cranial nerve VII: Patient is able to raise eyebrows, closes eyes, smile, purse lips, and move his lower lip to show his lower teeth symmetrically on both sides. 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 We will not know the diagnosis until it is excised and sent to pathology. I talked to the patient about the risks, benefits, and alternatives to surgery. I talked to him about direct excision over the lesion with a scar on the side of his face with unpredictable scarring, and he was in agreement that he wanted to proceed regardless of the scar. I talked to the patient extensively about the risks of facial nerve palsy as this is a location where the facial nerve comes out of the parotid. He understands that this is a risk. The risk is neuropraxia or, even worse, transection of the nerve with need for repeat operations and reconstruction. There is also risks of damage to other surrounding structures including the parotid duct. We discussed these risks and he was in agreement to proceed with the surgery as the mass is concerning him and causing him significant sharp severe pain. We also talked about the risks of damage (more content not included)... Normal [facility] Plastic Surgery Visit Report on 07-18-2024 Plastic Surgery Visit Report [facility] Plastic Reconstructive Surgery [address], [address] [place], [place] [address] OFFICE VISIT Date of Service: 07/18/24 MR#: [id number] Acct: [id number] Name: CHAPIN VELEZ Jr. Rep #: [id number] : 1965 Provider: Dr. Isra Lepe MD Age/Sex: 58/M Location: [facility] Status: Signed with Addenda ADDENDUM by Dr. Isra Lepe MD on 07/19/24 at 0805 Assessment and Plan (No Qualifiers) Assessment and Plan (1) Cheek mass: Status: Acute Comment: Right cheek Plan Caprini score is 3 for age and length of surgery 07/19/24 0805 Date Isra Lepe MD cc: * Signed Intake Vital Signs 3 04/09/24 17:53 07/18/24 14:24 Height 5 ft 10.6 in 5 ft 11 in Weight: 147 lb BMI 20.5 BP 98/66 Blood Pressure Location Rt brachial Position Sitting Respiration 18 Pulse 61 Pulse Source Monitor Pulse Oximetry (%) 97 Oxygen Delivery Method room air Intake Visit Reasons: LIPOMA R CHEEK Chief Complaint: Lipoma R cheek Is patient in pain?: No Allergies Seasonal Allergies: Uncoded Allergy (Severe, Verified 07/18/24 14:00) Other [facility] Medical History Spondylosis urinary frequency hpertriglyceridemia Surgical History axilla lymph node Social History Smoking Status: Never smoker alcohol intake: never HPI LIPOMA R CHEEK Details: Chapin Velez is a delightful 58-year-old male who is reportedly otherwise healthy who presents today for a right cheek mass as a referral from [facility] dermatology. They are concerned that it is a hemangioma lipoma as it is causing him significant pain and discomfort. Patient reports that the mass has been there for about 9 months, and has been growing. He went to a local ENT Dr. Sebastian in January 2024, who diagnosed him with a likely lipoma based on a CT scan and recommended observation. The mass/lipoma on the CT scan (I reviewed) is consistent with the chief complaint at today's visit, and a subcutaneous and overlying the right masseter. Patient reports that ever since his evaluation in January with ENT, the area of concern has become more painful and sometimes wakes him up at night. He has not had any facial palsy or trouble moving his face. He has no numbness on the side of his face. There is no drainage. He has not had any intraoral issues like tooth infections. He has never hurt the side of his face. He presented to the colloid mill operator for excision and they referred him to me. Patient is not a smoker. No personal or family history of bleeding or clotting problems ROS General General: Yes good health and fatigue; No fever(s) or weight loss HENMT HENMT: No rhinitis, sore throat/mouth sore, nasal congestion, contacts or glaucoma Endo Endocrine: No thyroid disease, polydipsia, heat intolerance, cold intolerance, hepatitis or excessive urine Skin Skin: No Bleeding, bruising, changing moles or suspicious lesion Musc Musculoskeletal: Yes joint pain, joint stiffness, muscle weakness and back pain; No osteoarthritis or Muscle aches/ myalgia Neuro Neurological: No headache(s), No lightheadedness and No numbness Cardio Cardiovascular: Yes fatigue; No chest pain, pacemaker or shortness of breat with exertion Psych Psychiatric: No depression, claustrophobia or anxiety Resp Respiratory: No spitting up, shortness of breath, sleep apnea, asthma, emphysema, TB, Cough or Smoker Gastro Gastrointestinal: No diarrhea, constipation, blood in stool, nausea, vomiting or abdominal bloating Josh Hematologic: No anemia, No bleeding and No abnormal bleeding Genitourinary: No urinary frequency, blood in urine or incontinence Exam Details No cervical lymphadenopathy There is a 2 x 2 cm painful mass just anterior to the parotid on the right side of the face that is mobile and subcutaneous. It is overlying the masseter and I cannot palpate the mass intraorally. No tenderness to palpation over the parotid. Cranial nerve exam: Cranial nerve II: visual acuity intact Cranial nerves III, IV and : extraocular movements intact, no diplopia with extraocular movements. Cranial nerve V: sensation to light touch intact in all 3 distributions of cranial nerve V. Cranial nerve VII: Patient is able to raise eyebrows, closes eyes, smile, purse lips, and move his lower lip to show his lower teeth symmetrically on both sides. Able to stick out their tongue and shrug shoulders normally. Uvula elevates. Supplemental Info I reviewed the CT scan Mass is subcutaneous overlying the right masseter Coding Level of Care Code Off vis,new,level (more content not included)... Normal [facility] CREATININE FINGERSTICKon CREATININE WB < 1.0 Normal 0.70-1.30 [facility] Comment on above: Performed By: #### L 9100.0200 #### [facility] [address] [place], [address] EGFR WB > 60.0000 Normal >60 [facility] Comment on above: Performed By: #### L 9100.0200 #### [facility] [address] [place], [address] Soft Tissue Neck WITH Contra ston 01-30-2024 Soft Tissue Neck WITH Contrast [facility] Imaging Services [address] [place] [address] Soft Tissue Neck WITH Contrast MR#: [id number] Acct: [id number] Name: AGUSTINCHAPIN Jr. Rep #: [id number] : 1965 M 58 From: Deejay Moore MD PCP: Leonora Ko, PAULO-C Status: REG CLI Study: Soft Tissue Neck WITH Contrast Date of Exam: 03/31/23 Exam# [id number] Ordering Dr: Fili Sebastian MD [id number] STUDY: CT SOFT TISSUE NECK WITH CONTRAST REASON FOR EXAM: Male, 58 years old. RT CHEEK MASS RADIATION DOSAGE (If Supplied By Facility): CTDIvol = ( 15.22 ) mGy, DLP = ( 505.87 ) mGycm TECHNIQUE: The patient was scanned in a multi-detector CT scanner. High resolution transaxial imaging was performed following intravenous administration of 100 mL of Isovue-370. Sagittal and coronal images were reconstructed. Individualized dose optimization techniques were used for this CT. The protocol utilizes one or more of the following dose reduction techniques: automated exposure control, adjustment of mA and/or kV according to patient size, and/or use of iterative reconstruction technique. COMPARISON: None. FINDINGS: There is a small subcutaneous lipoma underneath the radiopaque marker in the right cheek measuring approximately 1.9 x 1.1 cm. This overlies the right masseter muscle. Normal bilateral parotid glands. Normal bilateral investor relations director spaces. Normal bilateral parapharyngeal spaces. Normal bilateral carotid spaces. Normal bilateral sublingual and submandibular glands and spaces. Normal visualized nasopharynx. Normal retropharyngeal space. Normal perivertebral space. Normal visualized bilateral faucial tonsils. The visualized tongue, tongue base and oropharynx are normal. The visualized cervical lymph nodes (levels I-) are within normal size limits, and maintain normal morphology. There is no demonstrated solid or cystic mass lesion. There is no abnormal contrast enhancement. Normal epiglottis, bilateral vallecula and hypopharynx. The pre-epiglottic and paraglottic adipose spaces are normal. Normal visualized bilateral piriform sinuses, aryepiglottic folds, vocal cords, and arytenoid-cricoid articulations. Normal subglottic trachea. Normal bilateral lobes of the thyroid gland. Normal visualized pulmonary apices. Normal visualized paranasal sinuses. Normal visualized cervical spine. CT/Soft Tissue Neck WITH Contrast IMPRESSION: 1. 1.9 x 1.1 cm benign subcutaneous lipoma in the right cheek underneath the metallic BB marker and overlying the right masseter muscle. 2. No suspicious mass or lymphadenopathy in the suprahyoid neck and infrahyoid neck. Electronically Signed: Deejay Moore MD at 13:29 EST , CC: TANA Ko; Dr. Fili Sebastian MD Pv Design Engineer: Signed Normal [facility] Laboratory - Serology - non- microOrdered By: Leonora Ko on 04-07-2023 Sjogrens syndrome-B extractable nuclear IgG Qn (S) < 0.2 AI 0.0-0.9 [facility] No Panel InformationOrdered By: Leonora Ko on 04-07-2023 Centromere B Antibody <0.2 AI 0.0-0.9 [facility] DEBBIE-1 Antibody <0.2 AI 0.0-0.9 [facility] ALINING INSPECTOR Antibody <0.2 AI 0.0-0.9 [facility] SS-B/La IgG Antibody < 0.2 AI 0.0-0.9 [facility] Serum DNA double strand anti body assay (units/volume)Ordered By: Leonora Ko on 04-07-2023 DNA double strand Ab Qn (S) [IU]/mL 0-9 [facility] Comment on above: Negative <5 Equivoca l 5 - 9 Positive >9 Serum Scl-70 antibody assay (units/volume)Ordered By: Leonora Ko on 04-07-2023 SCL-70 extractable nuclear Ab Qn (S) <0.2 AI 0.0-0.9 [facility] Serum Perez extractable nucl ear antibody titerOrdered By: Leonora Ko on 04-07-2023 Perez extractable nuclear Ab (S) [Titer] <0.2 AI 0.0-0.9 [facility] Serum cyclic citrullinated p eptide IgG antibody assay (units/volume)Ordered By: Leonora Ko on 04-07-2023 Cyclic citrullinated peptide IgG Qn 8 units 0-19 [facility] Comment on above: Negative <20 Weak po sitive 20 - 39 Moderate positive 40 - 59 Strong positive >59Performed at: [facility] [id number] Director: Robert Venegas PhD, Phone: [phone] Absolute lymphocyte counton 12-17-2021 Lymphocytes Auto (Unsp spec) [#/Vol] 1.98 10*3/uL 0.83-4.51 [facility] Work Phone: Basophil percentageon 2021 Basophil percentage < 0.2 AI 0.0-0.9 [facility]: Basophils/100 WBC (Bld) 0.5 % 0-1 [facility] Work Phone: Bilirubin [Mass/Vol] 0.30 mg/dL 0.20-1.00 [facility] Work Phone: Comment on above: For patients on eltr ombopag therapy, use of Dimension [place] TBIL is not recommended. Chloride [Moles/Vol] 108 mmol/L 98-107 [facility] Work Phone: Eosinophils/100 WBC (Bld) 1.7 % 0-5 [facility] Work Phone: Glucose [Mass/Vol] 78 mg/dL 74-106 [facility] Work Phone: Neutrophils (Bld) [#/Vol] 5.5 10*3/uL 2.0-7.7 [facility] Work Phone: Neutrophils/100 WBC (Bld) 66.4 % 47-70 [facility] Work Phone: [phone] Potassium [Moles/Vol] 3.6 mmol/L 3.5-5.1 [facility] Work Phone: Protein [Mass/Vol] 7.5 g/dL 6.4-8.2 [facility] Work Phone: Sodium [Moles/Vol] 143 mmol/L 136-145 [facility] Work Phone: WBC (Bld) [#/Vol] 8.3 10*3/uL 4.4-11.0 [facility] Work Phone: Blood erythrocytes count (nu mber/volume)on 12-17-2021 RBC (Bld) [#/Vol] 4.82 10*6/uL 4.6-6.2 [facility] Work Phone: Blood hemoglobin measurement (mass/volume)on 12-17-2021 Hemoglobin (Bld) [Mass/Vol] 15.1 g/dL 13.0-16.5 [facility] Work Phone: Blood lymphocytes/100 leukoc yteson 12-17-2021 Lymphocytes/100 WBC (Bld) 23.8 % 19-41 [facility] Work Phone: Blood monocytes/100 leukocyt eson 12-17-2021 Monocytes/100 WBC (Bld) 7.1 % 0-10 [facility] Work Phone: Blood platelet mean volumeon 12-17-2021 Platelet mean volume (Bld) [Entitic vol] 10.5 fL 6.2-12.0 [facility] Work Phone: Determination of erythrocyte mean corpuscular volume (MCV)on 12-17-2021 MCV (RBC) [Entitic vol] 92.9 fL 80-94 [facility] Work Phone: Hematocrit Auto (Bld) [Volum e fraction]on 12-17-2021 Hematocrit (Bld) [Volume fraction] 44.8 % 40-54 [facility] Work Phone: Laboratory - Chemistry and C hemistry - challengeon 12-17-2021 ALP [Catalytic activity/Vol] 42 U/L 45-117 [facility] Work Phone: ALT [Catalytic activity/Vol] 21 U/L 16-61 [facility] Work Phone: CO2 [Moles/Vol] 29.0 mmol/L 21.0-32.0 [facility] Work Phone: Globulin (S) [Mass/Vol] 3.7 g/dL 2.2-4.2 [facility] Work Phone: Urea nitrogen/Creatinine [Mass ratio] 17.6 mg/mg 10- [facility] Work Phone: Laboratory - Hematology and Cell countson 12-17-2021 Erythrocyte distribution width (RBC) [Entitic vol] 42.2 fL 35.1-43.9 [facility] Work Phone: Erythrocyte distribution width (RBC) [Ratio] 12.3 % 11.6-14.6 [facility] Work Phone: Immature granulocytes/100 WBC (Bld) 0.500 % 0.0-0.9 [facility] Work Phone: Comment on above: IG% - Immature Granu locytes (promyelocytes, myelocytes and metamyelocytes) > 1% indicates that a LEFT SHIFT is Present. MCH (RBC) [Entitic mass] 31.3 pg 27.0-32.0 [facility] Work Phone: Nucleated RBC/100 WBC (Bld) [Ratio] 0 % 0-5 [facility] Work Phone: MCHC Auto (RBC) [Mass/Vol]on 12-17-2021 MCHC (RBC) [Mass/Vol] 33.7 g/dL 32-36 [facility] Work Phone: No Panel Informationon 12-17 Centromere B Antibody <0.2 AI 0.0-0.9 [facility] Work Phone: Estimated GFR (MDRD) Amer 111 mL/min >60 [facility] Work Phone: Comment on above: GFR Calc Estimated GFR (MDRD) Non-Af Amer 91 mL/min >60 [facility] Work Phone: Comment on above: Non- GFR Calc ALINING INSPECTOR Antibody <0.2 AI 0.0-0.9 [facility] Work Phone: Thyroid Stimulating Hormone (TSH) 1.44 uIU/mL 0.358-3.74 [facility] Work Phone: Platelets bldon 12-17-2021 Platelets (Bld) [#/Vol] 215 10*3/uL 150-450 [facility] Work Phone: Serum DNA double strand anti body assay (units/volume)on 12-17-2021 DNA double strand Ab Qn (S) [IU]/mL 0-9 [facility] Work Phone: Comment on above: Negative <5 Equivoca l 5 - 9 Positive >9 Serum Debbie-1 antibody assay (u nits/volume)on 12-17-2021 Debbie-1 extractable nuclear Ab Qn (S) <0.2 AI 0.0-0.9 [facility] Work Phone: Serum Scl-70 extractable nuc lear antibody assay (units/volume)on 12-17-2021 SCL-70 extractable nuclear Ab Qn (S) <0.2 AI 0.0-0.9 [facility] Work Phone: Serum Perez extractable nucl ear antibody detectionon 12-17-2021 Perez extractable nuclear Ab Ql (S) <0.2 AI 0.0-0.9 [facility] Work Phone: Serum or plasma albumin elke urement (mass/volume)on 12-17-2021 Albumin [Mass/Vol] 3.8 g/dL 3.2-5.0 [facility] Work Phone: Serum or plasma albumin/glob ulin mass ratioon 12-17-2021 Albumin/Globulin [Mass ratio] 1.0 {ratio} 0.9-2.4 [facility] Work Phone: Serum or plasma calcium elke urement (mass/volume)on 12-17-2021 Calcium [Mass/Vol] 9.1 mg/dL 8.5-10.1 [facility] Work Phone: Serum or plasma creatinine m easurement (mass/volume)on 12-17-2021 Creatinine [Mass/Vol] 0.91 mg/dL 0.70-1.30 [facility] Work Phone: Comment on above: The validity of the calculated GFR & GFRAA in patients over 70 years has not been determined. Clinical correlation is essential. Serum or plasma transthyreti n measurement (mass/volume)on 12-17-2021 Prealbumin [Mass/Vol] 33.1 mg/dL 20.0-40.0 [facility] Work Phone: Serum or plasma urea nitroge n measurement (mass/volume)on 12-17-2021 Urea nitrogen [Mass/Vol] 16 mg/dL 7-18 [facility] Work Phone: Serum rheumatoid factor dete ctionon 12-17-2021 Rheumatoid factor Ql (S) < 10.0 IU/mL <15 [facility] Work Phone: Thin prep Papanicolaou smear with manual screeningon 12-17-2021 Thin prep Papanicolaou smear with manual screening Negative Negative [facility] Work Phone: Comment on above: Lyme antibodies not detected. Reflex testing is notindicated.No laboratory evidence of infection with B. burgdorferi(Lyme disease). Negative results may occur in patientsrecently infected (less than or equal to 14 days) with B.burgdorferi. If recent infection is suspected, repeattesting on a new sample collected in 7 to 14 days isrecommended.Performed at: [address] [id number] Director: Robert Venegas PhD, Phone: [phone] Thin prep Papanicolaou smear with manual screening 15 U/L 15-37 [facility] Work Phone: Thin prep Papanicolaou smear with manual screening 6 5-15 [facility] Work Phone: Vital Signs Date Time Vital Sign Value Performing Clinician Tonny adkins 07-18-2024 14:24-0400 Body height 180.34 cm Leonora Ko NP-C Work Phone: [facility] 07-18-2024 14:24-0400 Body mass index (BMI) [Ratio] 20.5 kg/m2 Leonora Ko LICENSED PROFESSIONAL COUNSELOR-C Work Phone: [facility] 07-18-2024 14:24-0400 Body weight 66.67 kg Leonora Ko LICENSED PROFESSIONAL COUNSELOR-C Work Phone: [facility] 07-18-2024 14:24-0400 Diastolic blood pressure 66 mm[Hg] Leonora Ko LICENSED PROFESSIONAL COUNSELOR-C Work Phone: [facility] 07-18-2024 14:24-0400 Heart rate 61 /min Leonora Ko LICENSED PROFESSIONAL COUNSELOR-C Work Phone: [facility] 07-18-2024 14:24-0400 Respiratory rate 18 /min Leonora Ko LICENSED PROFESSIONAL COUNSELOR-C Work Phone: [facility] 07-18-2024 14:24-0400 SaO2% (BldA) [Mass fraction] 97 % Leonora Ko LICENSED PROFESSIONAL COUNSELOR-C Work Phone: [facility] 07-18-2024 14:24-0400 Systolic blood pressure 98 mm[Hg] Leonora Ko LICENSED PROFESSIONAL COUNSELOR-C Work Phone: [facility] 04-09-2024 17:53-0500 Body mass index (BMI) [Ratio] 21.8 kg/m2 Leonora Ko LICENSED PROFESSIONAL COUNSELOR-C Work Phone: [facility] 04-09-2024 17:53-0500 Body temperature 96.8 [degF] Leonora Ko LICENSED PROFESSIONAL COUNSELOR-C Work Phone: [facility] 04-09-2024 17:53-0500 Body weight 70.3 kg Leonora Ko LICENSED PROFESSIONAL COUNSELOR-C Work Phone: [facility] 04-09-2024 17:53-0500 Diastolic blood pressure 70 mm[Hg] Leonora Ko LICENSED PROFESSIONAL COUNSELOR-C Work Phone: [facility] 04-09-2024 17:53-0500 Heart rate 87 /min Leonora Ko LICENSED PROFESSIONAL COUNSELOR-C Work Phone: [facility] 04-09-2024 17:53-0500 Respiratory rate 18 /min Leonoraanastasiia MarinelliKo LICENSED PROFESSIONAL COUNSELOR-C Work Phone: [facility] 04-09-2024 17:53-0500 SaO2% (BldA) [Mass fraction] 98 % Leonora Marinellison LICENSED PROFESSIONAL COUNSELOR-C Work Phone: [facility] 04-09-2024 17:53-0500 Systolic blood pressure 115 mm[Hg] Leonoraanastasiia MarinelliKo LICENSED PROFESSIONAL COUNSELOR-C Work Phone: [facility] 04-07-2023 16:47-0500 Body height 179.32 cm [facility] 04-07-2023 16:47-0500 Body mass index (BMI) [Ratio] 20.8 kg/m2 [facility] 04-07-2023 16:47-0500 Body temperature 97.7 [degF] [facility] 04-07-2023 16:47-0500 Body weight 67.13 kg [facility] 04-07-2023 16:47-0500 Diastolic blood pressure 74 mm[Hg] [facility] 04-07-2023 16:47-0500 Heart rate 77 /min [facility] 04-07-2023 16:47-0500 Respiratory rate 18 /min [facility] 04-07-2023 16:47-0500 SaO2% (BldA) [Mass fraction] 99 % [facility] 04-07-2023 16:47-0500 Systolic blood pressure 120 mm[Hg] [facility] 12-17-2021 16:47-0400 Body height 179.32 cm [facility] Work Phone: 12-17-2021 16:47-0400 Body mass index (BMI) [Ratio] 19.5 kg/m2 [facility] Work Phone: 12-17-2021 16:47-0400 Body temperature 97.3 [degF] [facility] Work Phone: 12-17-2021 16:47-0400 Body weight 63.04 kg [facility] Work Phone: 12-17-2021 16:47-0400 Diastolic blood pressure 60 mm[Hg] [facility] Work Phone: 12-17-2021 16:47-0400 Heart rate 82 /min [facility] Work Phone: 12-17-2021 16:47-0400 Respiratory rate 18 /min [facility] Work Phone: 12-17-2021 16:47-0400 SaO2% (BldA) [Mass fraction] 9 % [facility] Work Phone: 12-17-2021 16:47-0400 Systolic blood pressure 100 mm[Hg] [facility] Work Phone: Encounters Encounter Date Encounter Type Care Provider Facility Start: 09-03-2024 End: 09-03-2024 Telephone encounter Luis Parekh MD Work Phone: [facility] ([facility]) Comment on above: Outside Referral Req uests Start: 08-26-2024 End: 08-26-2024 Telephone encounter Luis Parekh MD Work Phone: [facility] (ENT) Comment on above: Outside Referral Req uests Start: 08-20-2024 ambulatory Isra Lepe Facility:[facility] Start: 07-18-2024 End: 07-18-[address] Isra Lepe MD -[facility] Work Phone: Start: 07-18-2024 End: 07-18-2024 ambulatory Leonora Ko LICENSED PROFESSIONAL COUNSELOR-C Work Phone: [facility] Work Phone: Start: 01-30-2024 End: 01-30-2024 ambulatory Fili Bhatiababak Facility:[facility] Start: 04-07-2023 End: 04-07-2023 ambulatory [facility] Work Phone: Start: 04-07-2023 End: 04-07-2023 Patient encounter procedure [facility]-Laboratory, Specimen Work Phone: Start: 12-20-2021 End: 12-20-2021 ambulatory [facility] Work Phone: Start: 12-20-2021 End: 12-20-2021 Patient encounter procedure [facility]-Radiology, [facility] Start: 12-17-2021 End: 12-17-2021 ambulatory [facility] Work Phone: Start: 12-17-2021 End: 12-17-2021 Patient encounter procedure [facility]-Laboratory, Specimen Start: 10-27-2017 Patient encounter status [facility] Procedures Date Procedure Procedure Detail Performing Clinician Start: 12-20-2021 X-ray of lumbar spin e, two or three views Plan of Treatment Date Care Activity Detail Author Start: 12-17-2021 Measurement of Borre isaura burgdorferi antibody [facility] Work Phone: Laboratory data interpretation [facility] Work Phone: Payers Date Payer Category Payer Self-pay [id number] 2024 Unknown [id number] Unknown [facility] [id number] Unknown [id number] Unknown [id number] Unknown [id number] Social History Date Type Detail Facility Start: 12-17-2021 End: 10-11-2022 Tobacco smoking status NHIS Unknown if ever smoked [facility] Start: 1965 Sex Assigned At Male [facility] Start: 08-08-2023 Tobacco smoking stat us NHIS Never smoked tobacco (finding) [facility] Start: 12-20-2021 Gender identity Identifies as male gender (finding) [facility] Start: 12-20-2021 Sexual orientation Heterosexual (fin ding) [facility] Telephone encounter Note 09-03-2024 Telephone Encounter - Deanna Workman - 09/03/2024 2:46 PM EDT Note Date & Type Note Facility 09-03-2024 Telephone encount er Note The office received a referral request from [facility] asking us to reach out to the patient to schedule an appointment with Dr. Parekh for localized swelling, generalized enlarged lymph nodes, acute pharyngitis, dizziness, and cervicalgia. I have attempted to contact this patient by phone to schedule an appointment. Left message to call back. Deanna Workman [facility] Note 09-03-2024 Telephone Encounter - Deanna Workman - 09/03/2024 2:46 PM EDT Note Date & Type Note Facility 09-03-2024 Miscellaneous Notes Formattin g of this note might be different from the original. The office received a referral request from [facility] asking us to reach out to the patient to schedule an appointment with Dr. Parekh for localized swelling, generalized enlarged lymph nodes, acute pharyngitis, dizziness, and cervicalgia. I have attempted to contact this patient by phone to schedule an appointment. Left message to call back. Deanna Workman documented in this encounter [facility] Telephone encounter Note 08-26-2024 Telephone Encounter - Deanna Workman - 08/26/2024 2:40 PM EDT Note Date & Type Note Facility 08-26-2024 Telephone encount er Note The office received a referral request from [facility] asking us to reach out to the patient to schedule an appointment with Dr. Parekh for localized swelling, generalized enlarged lymph nodes, acute pharyngitis, dizziness, and cervicalgia. I have attempted to contact this patient by phone to schedule an appointment. Left message to call back. Deanna Workman [facility] Note 08-26-2024 Telephone Encounter - Deanna Workman - 08/26/2024 2:40 PM EDT Note Date & Type Note Facility 08-26-2024 Miscellaneous Notes Formattin g of this note might be different from the original. The office received a referral request from [facility] asking us to reach out to the patient to schedule an appointment with Dr. Parekh for localized swelling, generalized enlarged lymph nodes, acute pharyngitis, dizziness, and cervicalgia. I have attempted to contact this patient by phone to schedule an appointment. Left message to call back. Deanna Workman documented in this encounter [facility] Evaluation note 04-09-2024 Note Date & Type Note Facility 04-09-2024 Evaluation note Diagnosis Onset Date Resolution Bronchitis acute April 09, 2024 5:48pm Maxillary sinusitis, acute acute April 09 5:48pm [facility] Work Phone: Evaluation note Note Date & Type Note Facility Evaluation note Diagnosis Onset Date Weight loss, abnormal acute Chronic lower back pain bell attendant shubham [facility] Work Phone: Evaluation note Note Date & Type Note Facility Evaluation note Diagnosis Onset Date BPH (benign prostatic hyperplasia) acute Multiple joint pain acute Osteoarthritis acute Testosterone deficiency acut e [facility] Work Phone: Reason for referral (narrative) Note Date & Type Note Facility Reason for referral (narrative) No reason for referral information available [facility] Work Phone: Chief Complaint and Reason for Visit Chief Complaint Back pain E ORDER Reason for Visit Weight loss, abnorma l Chronic lower back pain Chief Complaint medication refills Reason for Visit BPH (benign prostati c hyperplasia) Multiple joint pain Osteoarthritis Testosterone deficiency Chief Complaint Admit Date Cough/ears/sinus April 09, 2024 5 :48pm LIPOMA R CHEEK July 18, 2024 1:44p m Reason for Visit Admit Date Bronchitis April 09, 2024 5 :48pm Maxillary sinusitis, acute April 09, 2024 5:48pm Summary Purpose Family History No Family History Records Found Advance Directives No Advanced Directives Records Found Additional Source Comments Goals (unrecognized section and content) Goals may be documented in a n alternate sectionGoals may be documented in an alternate sectionGoals may be documented in an alternate section Care Teams (unrecognized sec tion and content) Team Status: Active Member Role Status Dates Leonora Ko NP, LICENSED PROFESSIONAL COUNSELOR-C Family Provider Active Leonora Ko NP LICENSED PROFESSIONAL COUNSELOR-C Primary Care Provider Active Team Status: Inactive Member Role Status Dates Leonora Ko NP, NP-C Primary Care Pr ovider, Attending Provider, Referring Provider Active Team Status: Inactive Member Role Status Dates Leonora Ko NP LICENSED PROFESSIONAL COUNSELOR-C Primary Care Provider Active Start: April 09, 2024 End: April 09, 2024 Leonora Ko NP LICENSED PROFESSIONAL COUNSELOR-C Attending Provider Active Start: April 09, 2024 End: April 09, 2024 Leonora Ko NP LICENSED PROFESSIONAL COUNSELOR-C Referring Provider Active Start: April 09, 2024 End: April 09, 2024 Team Status: Inactive Member Role Status Dates Leonora Ko NP LICENSED PROFESSIONAL COUNSELOR-C Primary Care Provider Active Start: July 18, 2024 End: July 18, 2024 Leonora Ko NP LICENSED PROFESSIONAL COUNSELOR-C Referring Provider Active Start: July 18, 2024 End: July 18, 2024 Dr. Isra Lepe MD Attending Provider Active Start: July 18, 2024 End: July 18, 2024 (unrecognized sect ion and content) No Status Records Found INFORMATION SOURCE (unrecogn ized section and content) DATE CREATED AUTHOR 08/21/2024 [facility] Source Comments (unrecognize d section and content) In the event this informatio n is protected by the Federal Confidentiality of Alcohol and Drug Abuse Patient Records regulations: The Federal rules restrict any use of the information to criminally investigate or prosecute any alcohol or drug abuse patient[facility] the event this information is protected by the Federal Confidentiality of Alcohol and Drug Abuse Patient Records regulations: The Federal rules restrict any use of the information to criminally investigate or prosecute any alcohol or drug abuse patient.[facility] Reason for Visit (unrecogniz ed section and content) Reason Comments Outside Referral Requests FOR RECORDS PERTAINING TO PATIENTS WHO ARE OR HAVE BEEN ENROLLED IN A CHEMICAL DEPENDENCY/SUBSTANCEABUSE PROGRAM, SOME INFORMATION MAY BE OMITTED. This clinical summary was aggregated from multiple sources. Caution should be exercised in using it in the provision of clinical care. This summary normalizes information from multiple sources, and as a consequence, information in this document may materially change the coding, format and clinical context of patient data. In addition, data may be omitted in some cases. CLINICAL DECISIONS SHOULD BE BASED ON THE PRIMARY CLINICAL RECORDS. [facility]. provides no warranty or guarantee of the accuracy or completeness of information in this document.
[2024-09-24 03:38] LABS: Hematocrit 43.2 % (40-54); Hemoglobin 14.4 g/dL (13.0-16.5); Immature Granulocytes Count 0.020 X10^3/uL (0.0-0.0); Mean Corp Hgb Conc 33.3 g/dL (32-36); Mean Corpuscular Volume 93.7 fL (80-94); Mean Platelet Vol. 11.0 fl (6.2-12.0); NRBC Flagged by Analyzer 0 % (0-5); Platelet Count 204 K/mm3 (150-450); RBC Distribution Width CV 12.9 % (11.6-14.6); RBC Distribution Width SD 44.1 fl (35.1-43.9); Red Blood Count 4.61 M/mm3 (4.6-6.2); White Blood Count 6.3 K/mm3 (4.4-11.0)
[2024-09-24 04:53] LABS: AST(SGOT) 20 U/L (<=37); Alanine Aminotransfer ALT/SGPT 14 U/L (<=46); Albumin, Serum 4.3 g/dL (3.5-5.0); Alkaline Phosphatase 49 U/L (40-129); Anion Gap 11 (5-15); BUN 16 mg/dL (4-19); BUN/Creat Ratio 15.1 RATIO (10-20); Calcium,Total 9.5 mg/dL (7.6-11.0); Carbon Dioxide 25.1 mmol/L (21.0-32.0); Chloride 104 mmol/L (98-108); Globulin 2.6 g/dL (2.2-4.2); Glucose 97 mg/dL (70-99); Potassium 4.5 mmol/L (3.3-5.1)
[2024-09-24 05:27] LABS: Cholesterol 224 mg/dL (<=200); Low Density Lipoprotein Calc. 140 mg/dL; Triglycerides 156 mg/dL; Very Low Density Lipoprotein 31 mg/dL (5-40); cholesterol:hdl ratio screen 4.25
[2024-09-24 06:00] LABS: PSA,Total - Annual Screen 1.50 ng/mL (0.02-4.00)
[2024-09-25 14:09] LABS: EBV Acute VCA IgM < 36.0 U/mL (0.0-35.9); EBV-VCA IgG > 600.0 U/mL (0.0-17.9)
== END | disposition home or self-care (01) ==
PROVIDERS: PCP Nurse Practitioner; Referring Provider Nurse Practitioner; Visit Provider Nurse Practitioner
DX: D17.0 Benign lipomatous neoplasm of skin and subcutaneous tissue of head, face and neck (principal); J02.9 Acute pharyngitis, unspecified; E06.9 Thyroiditis, unspecified; N40.0 Benign prostatic hyperplasia without lower urinary tract symptoms
CPT/HCPCS: 80053; 80061; 84153; 84439; 84443; 85025; 86376; 86664; 86665; G0103